=== PATIENT | male | born 1945 | race Caucasian/White ===

== ENCOUNTER 2021-04-23 16:36 | Inpatient (IN) | payer BC, OTHER ==
[2021-04-23 16:52] VITALS: BMI 33.1
[2021-04-23 19:35] LABS: MAGNESIUM 2.4 mg/dL (1.8-2.4)
[2021-04-23 19:39] LABS: PHOSPHOROUS 3.3 mg/dL (2.5-4.9)
[2021-04-23 19:55] LABS: INR 1.18 (0.83-1.09); PROTHROMBIN TIME (PATIENT) 13.6 SEC (9.7-13.0)
[2021-04-23 19:57] LABS: ACTIVATED PTT 28.7 SECONDS (25.2-36.5)
[2021-04-23 20:59] LABS: CHLORIDE 107 mmol/L (98-107); SODIUM 143 mmol/L (136-145)
[2021-04-23 21:02] LABS: ALBUMIN 3.7 g/dl (3.4-5.0); ANION GAP 9 MMOL/L (8-16); CALCIUM 9.2 mg/dL (8.5-10.1); CO2 27 mmol/L (21-32); GLUCOSE,RANDOM 107 mg/dL (74-106)
[2021-04-23 21:05] LABS: CHOLESTEROL 194 mg/dL (50-200); CREATININE 0.8 mg/dL (0.55-1.3); SGOT/AST 24 U/L (15-37); TRIGLYCERIDES 454 mg/dL (0-150)
[2021-04-23 21:06] LABS: LDL CHOLESTEROL (ONLY SJRH) 110 mg/dL (5-100)
[2021-04-23 21:07] LABS: BASO % 0.6 % (0-2.0); BILIRUBIN,TOTAL 1.6 mg/dL (0.2-1); EOS % 0.9 % (0-4.5); HDL CHOLESTEROL 36 mg/dL (40-60); HEMATOCRIT 45.3 % (35.4-49); HEMOGLOBIN 15.9 GM/dL (11.7-16.9); LYMPH % 31.6 % (8-40); MCH 32.3 pg (25.7-33.7); MCHC 35.1 g/dl (32.0-35.9); MEAN CELL VOLUME 92.1 fl (80-96); MEAN PLT VOLUME 8.7 fl (7.5-11.1); MONO % 5.9 % (3.8-10.2); PLATELET COUNT 184 10^3/uL (134-434); RBC 4.91 M/mm3 (4.00-5.60); RDW 12.9 % (11.9-15.9); TOT PROT 6.9 g/dl (6.4-8.2); WHITE BLOOD COUNT 8.3 K/mm3 (4.0-10.0)
[2021-04-23 21:08] LABS: ALK PHOS 77 U/L (45-117)
[2021-04-23 21:11] LABS: SGPT/ALT 36 U/L (13-61)
[2021-04-24] MEDS ORDERED: amLODIPine BESYLATE 5 MG TABLET (FP) PO ONE (04:12)
[2021-04-24 06:38] LABS: BASO % 0.6 % (0-2.0); EOS % 1.3 % (0-4.5); HEMATOCRIT 47.2 % (35.4-49); LYMPH % 27.4 % (8-40); MCH 31.6 pg (25.7-33.7); MEAN PLT VOLUME 8.5 fl (7.5-11.1); MONO % 7.6 % (3.8-10.2); NEUT % 63.1 % (42.8-82.8); PLATELET COUNT 165 10^3/uL (134-434); RBC 5.08 M/mm3 (4.00-5.60); RDW 12.9 % (11.9-15.9)
[2021-04-24 06:52] LABS: ALBUMIN 3.7 g/dl (3.4-5.0); BLOOD UREA NITROGEN 17.6 mg/dL (7-18); MAGNESIUM 2.2 mg/dL (1.8-2.4)
[2021-04-24 06:55] LABS: CREATININE 0.8 mg/dL (0.55-1.3); PHOSPHOROUS 3.3 mg/dL (2.5-4.9)
[2021-04-24 06:56] LABS: BILIRUBIN,TOTAL 2.8 mg/dL (0.2-1); TOT PROT 6.9 g/dl (6.4-8.2)
[2021-04-24] MEDS ORDERED: ASPIRIN 81 MG CHEWABLE TABLETS ONE (09:25)
[2021-04-24] MEDS: ASPIRIN 81 MG CHEWABLE TABLETS PO SCH (09:30)
[2021-04-24 15:24] LABS: PH,URINE 5.5 (5.0-8.0); URINE APPEARANCE CLEAR; URINE BILIRUBIN NEGATIVE (NEGATIVE); URINE COLOR YELLOW; URINE GLUCOSE (UA) NEGATIVE (NEGATIVE); URINE KETONE NEGATIVE (NEGATIVE); URINE LEUK ESTERASE NEGATIVE (NEGATIVE); URINE NITRITE NEGATIVE (NEGATIVE); URINE PROTEIN TRACE (NEGATIVE); URINE UROBILINOGEN 0.2 mg/dL (0.2-1.0)
[2021-04-24] MEDS: amLODIPine BESYLATE 10 MG TABLET (FP) PO SCH (18:05)
[2021-04-24] MEDS ORDERED: ROSUVASTATIN CA 5 MG TABLET PO SCH (22:00)
[2021-04-25] MEDS: amLODIPine BESYLATE 10 MG TABLET (FP) PO SCH (09:53)
[2021-04-25] MEDS: ASPIRIN 81 MG CHEWABLE TABLETS PO SCH (09:53)
[2021-04-25] MEDS ORDERED: ASPIRIN 81 MG CHEWABLE TABLETS ONE (09:54)
[2021-04-25] MEDS ORDERED: ESCITALOPRAM OXALATE 10 MG TABLET PO SCH (10:00)
[2021-04-25] MEDS ORDERED: ENOXAPARIN NA (PORCINE) 40 MG/0.4 ML DISP.SYRIN SQ SCH (10:00)
[2021-04-25 12:43] VITALS: TEMP 98.6
[2021-04-25 12:52] VITALS: BP 131/91; PULSE 63
== END 2021-04-25 13:32 | disposition home or self-care (01) | DRG 74 ==
LOC: JER 16:36 → JERBED 20:22 → J6WEST-2 04-24 13:21
PROVIDERS: ADMIT Internal Medicine; ATTEND Internal Medicine
DX: S04.10XA Injury of oculomotor nerve, unspecified side, initial encounter (principal); R51.9 Headache, unspecified; I10 Essential (primary) hypertension; I77.9 Disorder of arteries and arterioles, unspecified; E78.5 Hyperlipidemia, unspecified; E78.1 Pure hyperglyceridemia; H53.2 Diplopia; R00.1 Bradycardia, unspecified; E80.6 Other disorders of bilirubin metabolism; R42 Dizziness and giddiness; F41.9 Anxiety disorder, unspecified; E66.9 Obesity, unspecified; Z68.33 Body mass index [BMI] 33.0-33.9, adult; X58.XXXA Exposure to other specified factors, initial encounter; Y93.9 Activity, unspecified; Y92.89 Other specified places as the place of occurrence of the external cause; Y99.9 Unspecified external cause status
CPT/HCPCS: 36415; 70450-TC; 70544-TC; 70551-TC; 71045-TC-FY; 80053; 80061; 81003; 82248; 82550; 82962; 83036; 83735; 84100; 84484; 85025; 85610; 85730; 86850; 86900; 86901; 93005; 93010; 93880-TC; 99285-25; C9803; U0003; U0005

== ENCOUNTER 2022-06-01 12:24 | Emergency (ER) | payer BC, OTHER ==
[2022-06-01 12:37] VITALS: BP 143/90; PULSE 58; RESP 16; TEMP 98; BMI 34.1
== END 2022-06-01 14:09 | disposition home or self-care (01) ==
LOC: JER 12:24
DX: G51.0 Bell's palsy (principal)
CPT/HCPCS: 82962; 93005; 93010; 99284-25

== ENCOUNTER 2024-04-06 16:31 | Inpatient (IN) | payer OTHER ==
[2024-04-06 16:43] VITALS: BMI 36.2
[2024-04-06 19:10] LABS: HEMATOCRIT 43.2 % (35.4-49); HEMOGLOBIN 14.5 GM/dL (11.7-16.9); MCH 30.4 pg (25.7-33.7); MCHC 33.5 g/dl (32.0-35.9); MEAN CELL VOLUME 90.6 fl (80-96); MEAN PLT VOLUME 7.7 fl (7.5-11.1); PLATELET COUNT 181 10^3/uL (134-434); RBC 4.77 M/mm3 (4.00-5.60); RDW 14.1 % (11.9-15.9); WHITE BLOOD COUNT 9.8 K/mm3 (4.0-10.0)
[2024-04-06 19:28] LABS: POTASSIUM 3.7 mmol/L (3.5-5.1)
[2024-04-06 19:31] LABS: ALBUMIN 3.1 g/dl (3.4-5.0); BLOOD UREA NITROGEN 15.2 mg/dL (7-18)
[2024-04-06 19:34] LABS: CREATININE 0.9 mg/dL (0.55-1.3)
[2024-04-06 19:35] LABS: BILIRUBIN,TOTAL 1.3 mg/dL (0.2-1); TOT PROT 6.2 g/dl (6.4-8.2)
[2024-04-06] MEDS: ACETAMINOPHEN 1000 MG/100 ML BAG IVPB ONE (20:36)
[2024-04-06] MEDS ORDERED: ACETAMINOPHEN INJECTION 100 ML ONE (20:37)
[2024-04-07 08:36] LABS: BASO % 0.8 % (0-2.0); EOS % 1.7 % (0-4.5); HEMATOCRIT 43.5 % (35.4-49); HEMOGLOBIN 14.9 GM/dL (11.7-16.9); LYMPH % 24.6 % (8-40); MCH 30.5 pg (25.7-33.7); MCHC 34.2 g/dl (32.0-35.9); MEAN CELL VOLUME 89.2 fl (80-96); MEAN PLT VOLUME 8.2 fl (7.5-11.1); MONO % 6.6 % (3.8-10.2); NEUT % 66.3 % (42.8-82.8); PLATELET COUNT 175 10^3/uL (134-434); RBC 4.87 M/mm3 (4.00-5.60); RDW 14.4 % (11.9-15.9); WHITE BLOOD COUNT 8.7 K/mm3 (4.0-10.0)
[2024-04-07 08:51] LABS: POTASSIUM 4.1 mmol/L (3.5-5.1)
[2024-04-07 08:58] LABS: ALBUMIN 3.2 g/dl (3.4-5.0); BLOOD UREA NITROGEN 13.8 mg/dL (7-18); CALCIUM 9.1 mg/dL (8.5-10.1)
[2024-04-07 09:01] LABS: CREATININE 0.7 mg/dL (0.55-1.3)
[2024-04-07 09:02] LABS: PHOSPHOROUS 2.8 mg/dL (2.5-4.9)
[2024-04-07 09:03] LABS: BILIRUBIN,TOTAL 2.3 mg/dL (0.2-1); TOT PROT 6.3 g/dl (6.4-8.2)
[2024-04-07 09:07] LABS: CHOLESTEROL 138 mg/dL (50-200)
[2024-04-07 09:09] LABS: HDL CHOLESTEROL 40 mg/dL (40-60); LDL CHOLESTEROL (ONLY SJRH) 73 mg/dL (5-100)
[2024-04-07 09:22] LABS: URINE APPEARANCE CLEAR; URINE BILIRUBIN NEGATIVE (NEGATIVE); URINE COLOR YELLOW; URINE GLUCOSE (UA) NEGATIVE (NEGATIVE); URINE KETONE NEGATIVE (NEGATIVE); URINE LEUK ESTERASE NEGATIVE (NEGATIVE); URINE NITRITE NEGATIVE (NEGATIVE); URINE PROTEIN NEGATIVE (NEGATIVE)
[2024-04-07] MEDS ORDERED: ENOXAPARIN NA (PORCINE) 40 MG/0.4 ML DISP.SYRIN SQ ONE (09:31)
[2024-04-07] MEDS ORDERED: HYDROCHLOROTHIAZIDE 25 MG TABLET (FP) ONE (09:31)
[2024-04-07] MEDS ORDERED: ASPIRIN 81 MG CHEWABLE TABLETS ONE (09:31)
[2024-04-07] MEDS ORDERED: ESCITALOPRAM OXALATE 10 MG TABLET ONE (09:31)
[2024-04-07] MEDS: ENOXAPARIN NA (PORCINE) 40 MG/0.4 ML DISP.SYRIN SQ SCH (09:33)
[2024-04-07] MEDS: HYDROCHLOROTHIAZIDE 25 MG TABLET (FP) PO SCH (09:33)
[2024-04-07] MEDS: ESCITALOPRAM OXALATE 10 MG TABLET PO SCH (09:33)
[2024-04-07] MEDS: ASPIRIN COATED 81 MG TABLET.EC PO SCH (09:33)
[2024-04-07] MEDS: OMEGA-3 ACID ETHYL ESTERS (FATTY-ACIDS) 1 GM CAPSULE (FP) PO SCH (09:33)
[2024-04-07] MEDS ORDERED: TRIAMCINOLONE ACET 0.1% CREAM 15 GM TUBE TP SCH (10:00)
[2024-04-07 11:11] VITALS: BP 144/84; PULSE 51; RESP 16; TEMP 98.1
[2024-04-07] MEDS ORDERED: ROSUVASTATIN CA 10 MG TABLET PO SCH (22:00)
== END 2024-04-07 13:23 | disposition home or self-care (01) | DRG 605 ==
LOC: JER 16:31 → JERBED 22:23 → INTOOBSV 22:23 → OBSVTOIN 04-07 08:19
PROVIDERS: ADMIT Internal Medicine; ATTEND Internal Medicine
DX: S01.01XA Laceration without foreign body of scalp, initial encounter (principal); I24.89 Other forms of acute ischemic heart disease; R00.1 Bradycardia, unspecified; E78.5 Hyperlipidemia, unspecified; F41.9 Anxiety disorder, unspecified; R11.0 Nausea; I10 Essential (primary) hypertension; R29.6 Repeated falls; H53.2 Diplopia; E66.9 Obesity, unspecified; Z68.36 Body mass index [BMI] 36.0-36.9, adult; W01.0XXA Fall on same level from slipping, tripping and stumbling without subsequent striking against object, initial encounter; Y93.9 Activity, unspecified; Y92.9 Unspecified place or not applicable; Y99.9 Unspecified external cause status
CPT/HCPCS: 36415; 70450-TC; 70496-TC; 70498-TC; 71046-TC-FY; 72125-TC; 80053; 80061; 81003; 83735; 84100; 84443; 84484; 85025; 85027; 87635; 93005; 93010; 99285-25; G0378; J0131